=== PATIENT | male | born 1970 | race American Indian/Alaskan Native ===

== ENCOUNTER 2021-12-31 20:54 | Emergency (ER) | payer OTHER ==
[2022-01-01] MEDS ORDERED: KETOROLAC 30 MG/1 ML INJ IV ONE (03:24)
[2022-01-01] MEDS ORDERED: diphenhydrAMINE 50 MG/ML VIAL IV ONE (03:24)
[2022-01-01] MEDS ORDERED: METOCLOPRAMIDE 10 MG/2 ML INJ IV ONE (03:24)
--- NOTE | 2022-01-01 04:53 | Emergency Department Report ---
ED Headache HPI - General Chief Complaint: Headache Stated Complaint: MIGRANE Source: patient, RN notes reviewed Exam Limitations: no limitations - History of Present Illness Initial Comments: Patient is a 51-year-old -[place] male with a history of migraine headaches who presents to the ED with complaint of acute onset persistent frontal sinus pressure, nasal and sinus congestion, and frontal headache for the last 1 week. Patient also states that he has had intermittent nausea with photophobia. Patient states that he has not taken any medications since the onset of the symptoms. Patient denies dizziness, syncope, fever, chills, vomiting, neck pain, sore throat, chest pain or shortness of breath, vision loss, change in speech, numbness and tingling or weakness of upper or lower extremities bilaterally and abdominal pain. Timing/Duration: 1 week Quality: severe, constant, pressure, sharp Head Injury Location: frontal Recent Head Trauma: chronic headaches Associated Symptoms: denies symptoms, facial pain, nasal congestion, nasal drainage, sinus infection. denies: confusion, fatigue, fever/chills, flushing, loss of consciousness, nausea/vomiting, numbness in legs/feet, seizures, stiff neck, vision changes, weakness Allergies/Adverse Reactions: Allergies INH Allergy (Uncoded 04/03/13 16:56) Rash Home Medications: Ambulatory Orders Hydrocodone Bit/Acetaminophen [Lortab 5-500 Tablet] 1 each PO Q6H PRN #21 tablet 04/03/13 Amoxicillin/K Clav Tab [Augmentin 875 mg] 1 tab PO Q12HR #20 tab 01/01/22 Butalb/Acetamin/Caff 50-325-40 [Fioricet 50-325-40] 1 - 2 tab PO Q6HR PRN #15 tab 01/01/22 Ketorolac [Toradol] 10 mg PO Q8H PRN #20 tab 01/01/22 Promethazine [Phenergan] 25 mg PO Q8HR PRN #30 tab 01/01/22 ED Review of Systems ROS: Stated complaint: MIGRANE Other details as noted in HPI Constitutional: denies: chills, fever Eyes: denies: eye pain, eye discharge, vision change ENT: congestion, other (Frontal and maxillary sinus pressure and pain). denies: ear pain, throat pain Respiratory: denies: cough, shortness of breath, wheezing Cardiovascular: denies: chest pain, palpitations Endocrine: no symptoms reported Gastrointestinal: nausea. denies: abdominal pain, diarrhea Genitourinary: denies: urgency, dysuria Musculoskeletal: denies: back pain, joint swelling, arthralgia Skin: denies: rash, lesions Neurological: headache (Frontal). denies: weakness, paresthesias Psychiatric: denies: anxiety, depression Hematological/Lymphatic: denies: easy bleeding, easy bruising ED Past Medical Hx - Past Medical History Previous Medical History?: Yes Hx Headaches / Migraines: Yes - Social History Smoking Status: Unknown if ever smoked - Medications Home Medications: Home Medications Medication Instructions Recorded Confirmed Last Taken Type Hydrocodone Bit/Acetaminophen 1 each PO Q6H PRN #21 tablet 04/03/13 Unknown Rx [Lortab 5-500 Tablet] Amoxicillin/K Clav Tab [Augmentin 1 tab PO Q12HR #20 tab 01/01/22 Unknown Rx 875 mg] Butalb/Acetamin/Caff 50-325-40 1 - 2 tab PO Q6HR PRN #15 tab 01/01/22 Unknown Rx [Fioricet 50-325-40] Ketorolac [Toradol] 10 mg PO Q8H PRN #20 tab 01/01/22 Unknown Rx Promethazine [Phenergan] 25 mg PO Q8HR PRN #30 tab 01/01/22 Unknown Rx ED Physical Exam - General Limitations: No Limitations General appearance: alert, in no apparent distress - Head Head exam: Present: atraumatic, normocephalic, normal inspection - Eye Eye exam: Present: normal appearance, PERRL, EOMI Pupils: Present: normal accommodation - ENT ENT exam: Present: normal orophraynx, mucous membranes moist, TM's normal bilaterally, normal external ear exam, other (Palpable frontal and bilateral maxillary sinus tenderness; grossly congested nasal passages) - Neck Neck exam: Present: normal inspection, full ROM. Absent: tenderness - Respiratory Respiratory exam: Present: normal lung sounds bilaterally. Absent: respiratory distress, wheezes, rales, rhonchi, chest wall tenderness, accessory muscle use, prolonged expiratory - Cardiovascular Cardiovascular Exam: Present: regular rate, normal rhythm, normal heart sounds. Absent: systolic murmur, diastolic murmur, rubs, gallop - GI/Abdominal GI/Abdominal exam: Present: soft, normal bowel sounds. Absent: tenderness, guarding, rigid, hyperactive bowel sounds, hypoactive bowel sounds - Extremities Exam Extremities exam: Present: normal inspection, full ROM, normal capillary refill. Absent: tenderness - Back Exam Back exam: Present: normal inspection, full ROM. Absent: tenderness, CVA tenderness (R), CVA tenderness (L), muscle spasm, paraspinal tenderness, vertebral tenderness - Neurological Exam Neurological exam: Present: alert, oriented X3, CN II-XII intact, normal gait, reflexes normal - Psychiatric Psychiatric exam: Present: normal affect, normal mood - Skin Skin exam: Present: warm, dry, intact, normal color. Absent: rash ED Course Vital Signs 12/31/21 01/01/22 01/01/22 21:35 03:08 03:09 Temperature 98.8 F 98.0 F Pulse Rate 88 90 Respiratory 18 15 15 Rate Blood Pressure 124/79 Blood Pressure 120/77 [Left] O2 Sat by Pulse 97 95 95 Oximetry 01/01/22 03:10 Temperature 98.0 F Pulse Rate 90 Respiratory 15 Rate Blood Pressure 132/84 Blood Pressure [Left] O2 Sat by Pulse 94 Oximetry ED Medical Decision Making - Medical Decision Making This is a 51-year-old -[place] male with a history of migraine headaches who presents to the ED with complaint of acute onset persistent frontal sinus pressure, nasal and sinus congestion, and frontal headache for the last 1 week. Patient also states that he has had intermittent nausea with photophobia. Patient states that he has not taken any medications since the onset of the symptoms. In the ED, patient is alert and oriented x3 and is not in any distress. Patient is hemodynamically stable. Patient was treated in the ED for pain and observed. On reevaluation, patient's headache resolved medication. Patient will discharge home on medications and advised to follow-up with his primary care physician in 7 to 10 days for reevaluation. Patient was advised to return to the ED immediately if symptoms get worse. - Differential Diagnosis Sinus headache; sinusitis; migraine headaches; URI; Critical care attestation.: If time is entered above; I have spent that time in minutes in the direct care of this critically ill patient, excluding procedure time. ED Disposition Clinical Impression: Sinus headache, Acute non-recurrent pansinusitis, Acute upper respiratory infection Migraine headache without aura Qualifiers: Status migrainosus presence: without status migrainosus Intractability: not intractable Qualified Code(s): G43.009 - Migraine without aura, not intractable, without status migrainosus Disposition: HOME / SELF CARE / HOMELESS Is pt being admited?: No Does the pt Need Aspirin: No Condition: Stable Instructions: Sinusitis, Adult, [id number], Upper Respiratory Infection, Adult, [id number], Recurrent Migraine Headache, [id number], Migraine Headache, [id number] Additional Instructions: Take medication with food, drink plenty of fluids and follow-up with your primary care physician in 7 to 10 days for reevaluation. Return to the ED immediately if symptoms get worse. Prescriptions: Amoxicillin/K Clav Tab [Augmentin 875 mg] 1 tab PO Q12HR #20 tab Butalb/Acetamin/Caff 50-325-40 [Fioricet 50-325-40] 1 - 2 tab PO Q6HR PRN #15 tab PRN Reason: Headache Promethazine [Phenergan] 25 mg PO Q8HR PRN #30 tab PRN Reason: Nausea Ketorolac [Toradol] 10 mg PO Q8H PRN #20 tab PRN Reason: Pain , Severe (7-10) Referrals: [facility] [Provider Group] - 7-10 days Forms: Work/School Release Form(ED) Time of Disposition: 04:50 Print Language: [place]AST [place]
[2022-01-01 05:57] VITALS: BP 139/91
== END 2022-01-01 06:00 | disposition home or self-care (01) ==
LOC: ED 20:54
DX: J32.9 Chronic sinusitis, unspecified (principal); J06.9 Acute upper respiratory infection, unspecified
CPT/HCPCS: 96374; 96375; 99282; J1200; J1885; J2765

== ENCOUNTER 2022-01-08 09:55 | Emergency (ER) | payer SELFPAY ==
[2022-01-08 10:29] VITALS: BP 131/94
--- NOTE | 2022-01-08 11:33 | XRay Report ---
CHEST 2 VIEWS INDICATION / CLINICAL INFORMATION: chest pain/ tightness URI STUDY TIME: 1121 COMPARISON: 04/03/2013 FINDINGS: SUPPORT DEVICES: None. HEART / MEDIASTINUM: No significant abnormality. LUNGS / PLEURA: No significant acute pulmonary or pleural abnormality. No pneumothorax. ADDITIONAL FINDINGS: No significant additional findings. Signer Name: Ky Rogers MD Signed: 01/08/2022 11:28 AM Workstation Name: [id number]
--- NOTE | 2022-01-09 15:17 | Electrocardiograph Report ---
[facility] Test Date: 2022-01-08 Test Time: 10:34:45 Pat Name: FREDRICK CORTEZ Department: Room: Gender: M Analog Device Designer: ELIER CHAVEZ : 1970 Requested By: ED DOC Order Number: [id number] Reading MD: Lamar Stewart Measurements Intervals [place] Rate: 96 P: 72 NC: 141 QRS: 63 QRSD: 97 T: 63 QT: 388 QTc: 490 Interpretive Statements Sinus rhythm Consider anteroseptal infarct No previous ECG available for comparison Electronically Signed On 01-09-2022 15:16:51 EDT by Lamar Stewart
== END 2022-01-09 11:02 | disposition left against medical advice (07) ==
LOC: ED 09:55
DX: R07.9 Chest pain, unspecified (principal); Z53.21 Procedure and treatment not carried out due to patient leaving prior to being seen by health care provider
CPT/HCPCS: 71046; 93005